=== PATIENT | male | born 1985 | race Caucasian/White ===

== ENCOUNTER 2019-02-26 23:04 | Emergency (ER) | payer MEDICAID ==
[~2019-02-26] VITALS: Ht 167.6 cm; Wt 80.7 kg
[2019-02-26 23:13] VITALS: Ht 167.6 cm; Wt 80.7 kg
[2019-02-27 00:12] LABS: CALCIUM 9.5 mg/dL (8.5-10.1); CARBON DIOXIDE 25.7 mmol/L (21-32); CHLORIDE SERUM 105 mmol/L (98-107); GFR1 > 60 mL/min; GLUCOSE SERUM 99 mg/dL (74-106); SODIUM SERUM 145 mmol/L (136-145)
[2019-02-27 00:16] LABS: ALBUMIN 4.1 g/dL (3.4-5.0); ALKALINE PHOSPHATASE 98 U/L (46-116); ALT/SGPT 35 U/L (16-63); AST/SGOT 31 U/L (15-37); LIPASE 118 IU/L (73-393); TOTAL PROTEIN, SERUM 8.1 g/dL (6.4-8.2)
[2019-02-27 00:23] LABS: BASOPHIL % 0.8 % (0-2); PLATELET COUNT 188 x10^3mcL (130-400); RED CELL DISTRIBUTION WIDTH 13.8 % (11.5-14.5)
[2019-02-27 02:44] VITALS: BP 91/55
== END 2019-02-27 02:44 | disposition home or self-care (01) ==
LOC: ED 23:04
PROVIDERS: Emergency Medicine
DX: R10.813 Right lower quadrant abdominal tenderness (principal); R06.02 Shortness of breath; F17.210 Nicotine dependence, cigarettes, uncomplicated
CPT/HCPCS: G0480; J2270; J2405; J7030